=== PATIENT | female | born 1980 | race Caucasian/White ===

== ENCOUNTER 2017-01-18 16:36 | Emergency (ER) | payer MEDICAID ==
[2017-01-18] MEDS ORDERED: ONDANSETRON HCL 4 MG/2 ML VIAL ONE (17:55)
--- NOTE | 2017-01-18 18:04 | CT REPORT ---
HISTORY: Headache and vomiting. COMPARISON: None available. TECHNIQUE: Axial non-contrast images obtained from skull vertex through foramen magnum. Dose reduction technique was utilized. FINDINGS: No intracranial mass. No intracranial hemorrhage. No extra-axial fluid collection. Normal ventricular size and position. No midline shift. No evidence for acute or evolving stroke. No calvarial fracture. Clear paranasal sinuses. Clear mastoid air cells. IMPRESSION: Normal head CT. Final Electronic Signature: This report was electronically signed by Ludin Betancourt MD, FACR on 6:02 PM. nancy /
[2017-01-18] MEDS ORDERED: SUMATRIPTAN NASAL ONE (19:13)
[2017-01-18] MEDS ORDERED: HALOPERIDOL 5 MG/ML VIAL ONE (19:28)
[2017-01-18] MEDS ORDERED: BENZTROPINE MESYLATE 2 MG/2 ML AMP ONE (19:28)
--- NOTE | 2017-01-18 20:13 | ER NURSING DOCUMENTATION ---
Nurse's Notes [facility] Name:Kaylin Acosta Age:36 yrs Sex:Female :1980 Arrival Date:01/18/2017 Time:16:36 Bed1 Private MD: Diagnosis:Migraine Headache Presentation: 01/18 16:40 Transition of care: patient was not received from another setting of care. Notified ED nf Physician of patient's arrival and CC Dr. Abel notified. 16:40 Acuity: KURT 3 nf 16:40 Method Of Arrival: Private Vehicle nf 17:27 Risk considerations: patient denies sudden onset of headache, syncopal episode, and nf "worst headache of life". 17:32 Presenting complaint: Patient states: migraine headache unrelieved with Imitrex, has nf nausea as well, symptoms consistent with previous migraines; reports having unintentionally lost 30 pounds in 3 months and having unexpected falls. Triage Assessment: 17:29 Headache History: The patient has had previous headaches and this one is similar to previous episodes. General: Appears well nourished, well groomed, Behavior is pleasant. Pain: Complains of pain in generalized migraine headache Pain At worst was 6 out of 10 on a pain scale. Pain began gradually, Also complains of nausea. Neuro: Level of Consciousness is awake, alert, Oriented to person, place, time, event, states she cannot recall events from last night when drinking 2 glasses of wine. Glass Block Bender are equal bilaterally Moves all extremities. Speech is normal, Facial symmetry appears normal, Pupils are PERRLA. Cardiovascular: No deficits noted. Capillary refill < 3 seconds. Respiratory: Respiratory effort is even, unlabored, Respiratory pattern is regular. GI: Reports nausea. Historical: - Allergies: PENICILLINS; - Home Meds: 1. Imitrex Oral 2. Maxalt oral - PMHx: MIGRAINES; - PSHx: NA today; - Tetanus: Other NA today. - Ebola Screening: : No symptoms or risks identified at this time. . - Social history: Smoking status: unknown if patient ever smoked tobacco. Patient uses alcohol but reports only rare drinking. - Immunization history: NA today. Screenin:25 Infectious Disease Risk None. Abuse screen: Denies threats or abuse. Nutritional nf screening: No deficits noted. Vital Signs: 16:48 BP 116 / 76; Pulse 97; Resp 16; Temp 99.3(O); Pulse Ox 94% on R/A; Weight 47.63 kg (R); arc Height 5 ft. 4 in. (162.56 cm) (R); Pain 6/10; 19:54 BP 104 / 64; Pulse 58; Resp 20; Temp 98; Pulse Ox 92% on R/A; mv 16:48 Body Mass Index 18.02 (47.63 kg, 162.56 cm) arc Dar Coma Score: 17:25 Eye Response: spontaneous(4). Verbal Response: oriented(5). Motor Response: obeys nf commands(6). Total: 15. 19:00 Eye Response: spontaneous(4). Verbal Response: oriented(5). Motor Response: obeys tl1 commands(6). Total: 15. 20:07 Eye Response: spontaneous(4). Verbal Response: oriented(5). Motor Response: obeys nf commands(6). Total: 15. ED Course: 16:39 Patient arrived in ED. cj 16:40 Payal Li, RN is Primary Nurse. nf 16:40 Triage completed. nf 16:57 Brian Abel MD is Attending Physician. tl1 16:59 Inserted peripheral IV: 18 gauge in left antecubital area and blood collected. arc 17:26 Valuables Remains with patient Bed in low position. Call light in reach. Side rails up nf X 1. Adult w/ patient. Pulse Ox - RN Monitoring Only NIBP On - RN Monitoring Only. Door closed. Noise minimized. Lights dimmed. Moved to private room. Verbal reassurance given. Warm blanket given. Pillow given. Diet: Patient is NPO. Family accompanied patient. 17:[address] pm1 18:01 Patient moved back from CT. pm1 19:20 Attending Physician role handed off by Brian Abel MD sc 19:20 Stevo Escalera MD is Attending Physician. sc 19:55 Discontinued IV intact, bleeding controlled, pressure dressing applied, No mv redness/swelling at site. 19:59 Ovidio Self MD is Referral Physician. tl1 Administered Medications: 17:49 Drug: Dilaudid 0.5 mg; Route: IVP; Site: left antecubital; nf 18:58 Follow up: Response: Pain is decreased nf 17:49 Drug: Zofran 4 mg; Route: IVP; Infused Over: 2 mins; Site: left antecubital; nf 18:59 Follow up: Response: Nausea is decreased nf 19:11 CANCELLED (Patient Refused): Imitrex Zebulon 20 mg Intranasal once; administer into one nf nostril 19:11 Drug: Dilaudid 1 mg; Route: IVP; Site: left antecubital; nf 19:28 Follow up: Response: Pain is decreased nf 19:15 CANCELLED (Other Intervention Used): Haldol 5 mg IVP once nf 19:27 Drug: Haldol 2.5 mg; Route: IVP; Site: left antecubital; nf 19:56 Follow up: Response: Pain is decreased nf 19:28 Drug: Cogentin 2 mg; Route: IVP; Site: left antecubital; nf 19:56 Follow up: Response: Pain is decreased nf Outcome: 20:00 Discharge ordered by MD. espinoza 20:07 Discharged to home via wheelchair. nf 20:07 Condition: improved 20:07 Discharge Assessment: Patient awake, alert and oriented x 3. No cognitive and/or functional deficits noted. Patient verbalized understanding of disposition instructions. 20:07 Discharge instructions given to patient, significant other, Instructed on discharge instructions, follow up and referral plans. medication usage, Demonstrated understanding of instructions, medications. 20:07 IV D/Gigi 20:12 Patient left the ED. nf Signatures: Payal Li RN RN nf Stevo Escalera MD MD sc McBride, Philisha pm1 Brian Abel MD MD tl1 Svetlana Escalera Reg Reg arc vogel, margaux mv Jones, Carissa cj
--- NOTE | 2017-01-18 20:13 | ER PHYSICIAN DOCUMENTATION ---
Physician Documentation [facility] Name:Kaylin Acosta Age:36 yrs Sex:Female :1980 Arrival Date:01/18/2017 Time:16:36 Bed1 Private MD: Stveo Turner Disposition: 01/20 09:01 Chart complete. tl1 Disposition: 01/18/17 20:00 Discharged to Home/Self Care. Impression: Migraine Headache. - Condition is Good. - Discharge Instructions: HEADACHE, Migraine (Classical). - Medical Reconciliation form form. - Follow up: Ovidio Self MD; When: 7 - 10 days; Reason: Recheck today's complaints, Continuance of care. - Problem is new. - Symptoms have improved. HPI: 01/18 16:58 This 36 yrs old Female presents to ER via Private Vehicle with complaints of tl1 Headache, Vomiting. 17:00 The patient complains of pain to the right frontal area. Onset: The symptoms/episode tl1 began/occurred yesterday. Associated signs and symptoms: Pertinent positives: nausea, PHOTOPHOBIA. Severity of symptoms: At its worst the pain was severe, in the emergency department the pain has improved. Headache History: The patient has had previous headaches and this one is similar to previous episodes. Risk factors for subarachnoid hemhorrage: no risk factors present. The patient has experienced similar episodes in the past, multiple times. She has tried imitrex with only transient relief of her pain.. Historical: - Allergies: PENICILLINS; - Home Meds: 1. Imitrex Oral 2. Maxalt oral - PMHx: MIGRAINES; - PSHx: NA today; - Tetanus: Other NA today. - Ebola Screening: : No symptoms or risks identified at this time. . - Social history: Smoking status: unknown if patient ever smoked tobacco. Patient uses alcohol but reports only rare drinking. - Immunization history: NA today. ROS: 13:00 Constitutional: Positive for fatigue, malaise. tl1 13:00 Eyes: Positive for photophobia. 13:00 Neuro: Positive for headache, Negative for dizziness, loss of consciousness, speech changes, syncope. Exam: 13:00 Constitutional: This is a well developed, well nourished patient who is awake, alert, tl1 and in no acute distress. 13:00 Head/Face: Normocephalic, atraumatic. tl1 13:00 Eyes: Pupils: equal, round, and reactive to light and accomodation. 13:00 ENT: Exam is negative for acute changes. 13:00 Neck: ROM/movement: is normal. 13:00 Cardiovascular: Rate: normal. Vital Signs: 16:48 BP 116 / 76; Pulse 97; Resp 16; Temp 99.3(O); Pulse Ox 94% on R/A; Weight 47.63 kg (R); arc Height 5 ft. 4 in. (162.56 cm) (R); Pain 6/10; 19:54 BP 104 / 64; Pulse 58; Resp 20; Temp 98; Pulse Ox 92% on R/A; mv 16:48 Body Mass Index 18.02 (47.63 kg, 162.56 cm) arc Dar Coma Score: 17:25 Eye Response: spontaneous(4). Verbal Response: oriented(5). Motor Response: obeys nf commands(6). Total: 15. 19:00 Eye Response: spontaneous(4). Verbal Response: oriented(5). Motor Response: obeys tl1 commands(6). Total: 15. 20:07 Eye Response: spontaneous(4). Verbal Response: oriented(5). Motor Response: obeys nf commands(6). Total: 15. MDM: 16:57 Patient medically screened. tl1 16:58 Patient medically screened. tl1 19:00 Differential diagnosis: intracerebral hemorrhage, meningitis, meningoencephalitis, tl1 migraine, neoplasm, subarachnoid bleed, tension headache, traumatic injuries. Data reviewed: vital signs, nurses notes, EMS record, lab test result(s), EKG, and as a result, I will discharge patient. Counseling: I had a detailed discussion with the patient and/or guardian regarding: the historical points, exam findings, and any diagnostic results supporting the discharge/admit diagnosis, lab results, the need for outpatient follow up, to return to the emergency department if symptoms worsen or persist or if there are any questions or concerns that arise at home. Response to treatment: the patient's symptoms have markedly improved after treatment, and as a result, I will discharge patient. 01/18 18:06 Order name: CAT SCAN; HEAD W/O CON [id number]; Complete Time: 09:02 EDMS 01/20 09:02 Interpretation: NAD. SEE NOTE. tl1 Dispensed Medications: 17:49 Drug: Dilaudid 0.5 mg; Route: IVP; Site: left antecubital; nf 18:58 Follow up: Response: Pain is decreased nf 17:49 Drug: Zofran 4 mg; Route: IVP; Infused Over: 2 mins; Site: left antecubital; nf 18:59 Follow up: Response: Nausea is decreased nf 19:11 CANCELLED (Patient Refused): Imitrex Weinert 20 mg Intranasal once; administer into one nf nostril 19:11 Drug: Dilaudid 1 mg; Route: IVP; Site: left antecubital; nf 19:28 Follow up: Response: Pain is decreased nf 19:15 CANCELLED (Other Intervention Used): Haldol 5 mg IVP once nf 19:27 Drug: Haldol 2.5 mg; Route: IVP; Site: left antecubital; nf 19:56 Follow up: Response: Pain is decreased nf 19:28 Drug: Cogentin 2 mg; Route: IVP; Site: left antecubital; nf 19:56 Follow up: Response: Pain is decreased nf Signatures: Payal Li RN RN Brian Elizondo MD MD tl1
== END 2017-01-18 20:13 | disposition home or self-care (01) ==
LOC: ER 16:36
DX: G43.009 Migraine without aura, not intractable, without status migrainosus (principal); R53.83 Other fatigue; R53.81 Other malaise; Z79.899 Other long term (current) drug therapy
CPT/HCPCS: 70450; 96374; 96375; 96376; 99284; J0515; J1170; J1630; J2405